=== PATIENT | male | born 1965 | race Caucasian/White ===

== ENCOUNTER 2019-02-04 20:39 | Inpatient (IN) | payer OTHER ==
[~2019-02-04] VITALS: Ht 180.3 cm; Wt 88.0 kg
[2019-02-04 20:40] VITALS: BP 143/90
--- NOTE | 2019-02-04 20:40 | NUR ---
TO BED # 03 AMBULATORY
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
[2019-02-04] MEDS ORDERED: VANCOMYCIN PER PHARMACY MC PRN ×2 (21:15→22:30)
[2019-02-04] MEDS ORDERED: KETOROLAC 15 MG/ML VIAL IVP ONE (21:15)
[2019-02-04] MEDS ORDERED: NACL 0.9% 1,000 ML IV ONE (21:15)
[2019-02-04] MEDS ORDERED: VANCOMYCIN 1GM/DEXT 5% PREMIX 200 ML IV ONE (21:15)
--- NOTE | 2019-02-04 21:17 | NUR ---
PA AT PT BEDSIDE
--- NOTE | 2019-02-04 21:30 | NUR ---
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
--- NOTE | 2019-02-04 21:32 | NUR ---
LAB AT BEDSIDE
[2019-02-04] MEDS ORDERED: cefTRIAXone 1,000 MG VIAL ONE (21:38)
[2019-02-04] MEDS ORDERED: MORPHINE SULFATE 4 MG/ML SYR IVP ONE (22:00)
[2019-02-04 22:12] LABS: HEMATOCRIT 50.9 % (36-52); HEMOGLOBIN 17.4 g/dL (12.0-18.0); MEAN CORPUSCULAR HEMOGLOBIN 31 pg (27-31); MEAN CORPUSCULAR HGB CONC 34 g/dL (33-37); MEAN CORPUSCULAR VOLUME 89.8 fL (80-94); RED BLOOD CELL COUNT(AUTO) 5.67 MIL/uL (4.20-6.10); WHITE BLOOD COUNT (AUTO) 10.7 K/uL (4.8-10.8)
[2019-02-04 22:13] LABS: BASOPHILS # (AUTO) 0.1 K/uL (0.00-0.22); BASOPHILS % (AUTO) 1.4 % (0.0-2.0); EOSINOPHILS # (AUTO) 0.4 K/uL (0-0.4); EOSINOPHILS % (AUTO) 3.4 % (0.0-4.0); LYMPHOCYTES # (AUTO) 2.3 K/uL (2.0-11.5); LYMPHOCYTES % (AUTO) 21.3 % (20.5-51.1); MONOCYTES # (AUTO) 0.9 K/uL (0.8-1.0); MONOCYTES % (AUTO) 8.3 % (1.7-9.3); NEUTROPHILS % (AUTO) 65.6 % (42.2-75.2); PLATELET COUNT (AUTO) 250 K/uL (140-450); RED CELL DISTRIBUTION WIDTH 13.6 % (11.6-13.7)
[2019-02-04 22:14] LABS: ANION GAP 19.2 (8-16); CARBON DIOXIDE 22.2 mmol/L (21-32); POTASSIUM 4.4 mmol/L (3.5-5.1)
[2019-02-04 22:15] LABS: TOTAL BILIRUBIN 0.4 mg/dL (0.0-1.0)
[2019-02-04] MEDS ORDERED: VANCOMYCIN 1,000 MG VIAL ONE (22:30)
[2019-02-04] MEDS ORDERED: ZOLPIDEM 5 MG TAB PO PRN (22:30)
[2019-02-04] MEDS ORDERED: ONDANSETRON 4 MG/2 ML VIAL IVP PRN (22:30)
[2019-02-04] MEDS ORDERED: ACETAMINOPHEN 325 MG TAB PO PRN (22:30)
[2019-02-04] MEDS ORDERED: LORazepam 2 MG/ML VIAL IVP PRN (22:30)
[2019-02-04] MEDS ORDERED: NACL 0.9% 1,000 ML IV SCH (22:30)
[2019-02-04] MEDS ORDERED: KETOROLAC 30 MG/ML VIAL IVP PRN (22:30)
--- NOTE | 2019-02-04 22:30 | NUR ---
PT RESTING, SEEN WITH EYES CLOSED. VISIBLE CHEST RISE AND FALL NOTED. WILL CONTIUE TO MONITOR.
--- NOTE | 2019-02-04 23:07 | NUR ---
Patient will be admitted to care of Dr. Doherty. Admited to Med Surg. Will go to room 119B. Belongings list completed. VSS at time of transport. Report to REJI Wells. transfer of care at this time.
--- NOTE | 2019-02-04 23:10 | NUR ---
ADMITTED A 53 YEAR OLD MALE FROM ER. PATIENT ALERT AND ORIENTED X4. CONGOLESE SPEAKING. NO APPARENT DISTRESS NOTED. ORIENTED TO HOSPITAL ROUTINE, ENVIRONMENT AND EQUIPMENT. VERBALIZED UNDERSTANDING. WILL CONTINUE TO MONITOR.
[2019-02-05] VITALS: BP 134/93
[2019-02-05] MEDS ORDERED: AMPICILLIN/SULBACTAM 3 GM VIAL ONE ×2 (00:28→05:49)
[2019-02-05] MEDS: AMPICILLIN/SULBACTAM 3 GM in NACL 0.9% 100 ML IV SCH ×3 (00:40→12:01)
--- NOTE | 2019-02-05 01:10 | NUR ---
PATIENT ASLEEP IN BED. NO APPARENT DISTRESS NOTED. WILL CONTINUE TO MONITOR.
[2019-02-05 02:11] LABS: APPEARANCE,URINE CLEAR (CLEAR); BILIRUBIN,URINE NEGATIVE (NEGATIVE); BLOOD, URINE NEGATIVE (NEGATIVE); COLOR,URINE YELLOW (YELLOW); LEUKOCYTE ESTERASE ,URINE NEGATIVE (NEGATIVE); NITRITE, URINE NEGATIVE (NEGATIVE); UGLUCOSE NEGATIVE (NEGATIVE)
--- NOTE | 2019-02-05 03:26 | NUR ---
PATIENT ASLEEP IN BED. NO APPARENT DISTRESS NOTED. WILL CONTINUE TO MONITOR.
--- NOTE | 2019-02-05 05:25 | NUR ---
PATIENT ASLEEP IN BED. NO APPARENT DISTRESS NOTED. WILL CONTINUE TO MONITOR.
--- NOTE | 2019-02-05 06:50 | NUR ---
PATIENT HAS BEEN SCREENED AND CATEGORIZED LOW NUTRITION RISK. PATIENT WILL BE SEEN WITHIN 7 DAYS OF ADMISSION. 02/12/19 DEDRICK GARCIA MS, RDN
--- NOTE | 2019-02-05 07:00 | NUR ---
RECEIVED PATIENT FROM BELL ATTENDANT RN. PT. IS LAYING IN BED. AAOX4. NO SIGNS OF DISTRESS NOTED. RESPIRATIONS EVEN AND UNLABORED, ON ROOM AIR. DENIES PAIN. IV SITE PATENT, DRY AND INTACT. BED IN LOW POSITION. CALL LIGHT IS WITHIN REACH. WILL CONTINUE TO MONITOR.
--- NOTE | 2019-02-05 07:10 | NUR ---
ENDORSED TO AM SHIFT NURSE IN STABLE CONDITION.
[2019-02-05 07:15] LABS: BASOPHILS # (AUTO) 0.1 K/uL (0.00-0.22); BASOPHILS % (AUTO) 0.7 % (0.0-2.0); EOSINOPHILS # (AUTO) 0.4 K/uL (0-0.4); EOSINOPHILS % (AUTO) 3.8 % (0.0-4.0); HEMATOCRIT 47.3 % (36-52); HEMOGLOBIN 16.2 g/dL (12.0-18.0); LYMPHOCYTES % (AUTO) 19.4 % (20.5-51.1); MEAN CORPUSCULAR HEMOGLOBIN 31 pg (27-31); MEAN CORPUSCULAR HGB CONC 34 g/dL (33-37); MEAN CORPUSCULAR VOLUME 90.4 fL (80-94); MONOCYTES % (AUTO) 10.3 % (1.7-9.3); NEUTROPHILS # (AUTO) 6.7 K/uL (1.8-7.7); NEUTROPHILS % (AUTO) 65.8 % (42.2-75.2); PLATELET COUNT (AUTO) 208 K/uL (140-450); RED BLOOD CELL COUNT(AUTO) 5.24 MIL/uL (4.20-6.10); RED CELL DISTRIBUTION WIDTH 13.5 % (11.6-13.7); WHITE BLOOD COUNT (AUTO) 10.2 K/uL (4.8-10.8)
[2019-02-05 07:26] LABS: ALBUMIN 3.5 g/dL (3.4-5.0); ANION GAP 14.1 (8-16); CREATININE 0.9 mg/dL (0.7-1.3); POTASSIUM 4.1 mmol/L (3.5-5.1); TOTAL BILIRUBIN 0.5 mg/dL (0.0-1.0)
--- NOTE | 2019-02-05 07:54 | NUR ---
GIVEN IVP TORADOL FOR HAND PAIN. EDUCATED PATIENT ON INDICATION AND SIDE EFFECTS. PATIENT VERBALIZED UNDERSTANDING. WILL REASSESS. CALL LIGHT IS WITHIN REACH. BED IN LOW POSITION.
[2019-02-05 08:00] VITALS: BP 126/88
--- NOTE | 2019-02-05 09:50 | NUR ---
PATIENT IS SLEEPING AT THIS TIME. NO COMPLAINTS OF PAIN. NO SIGNS OF DISTRESS NOTED. WILL CONTINUE TO MONITOR. CALL LIGHT IS WITHIN REACH. BED IN LOW POSITION
[2019-02-05] MEDS ORDERED: VANCOMYCIN 1,250 MG in DEXTROSE 5% 250 ML IV SCH (10:00)
--- NOTE | 2019-02-05 11:40 | NUR ---
Pantry Goods Maker Note: Basic Screen: Yes High Risk DC Screen [place]: MALAIKA Mathur Relationship: ROOMMATE Pre-Admission Living Arrangements: Lives with Other Other: ROOMMATE Prior ADL Independent Current Home Health Name/Tel: N/A Current DME/02 Name/Tel: N/A Current Hospice Name/Tel: N/A Current Dialysis Name/Tel: N/A Healthcare Decision Maker: Patient Advance Directive No - REFUSED Physician Orders for Life Sustaining Treatment Form No Patient/Family Have Educational Needs No Information Taught: Advance Directive Community Resources Person Taught: Patient Teaching Tools: Community Resources Verbal Factors Affecting Learning: None Participation Level: Refused Evaluation: Verbalizes Understanding Discipline: Case Mgt/Social Svcs Tentative Discharge Plan/Destination: No Needs Identified Will require assistance post discharge: No Referred to Pattern Cleaner: No Tentative Discharge Plan Summary: Patient is a 53-year-old male admitted for hand cellulitis. Patient has PMHX of Hep C. Patient was admitted from home. SW verified demographics with patient. Patient reports no mental health history. Patient reports drinking 2 beers 2-3x a week and methamphetamine use 3x a week (1 dime). Patient stated he is not able to recall how much marijuana he uses. Patient refused substance abuse resources and stated his drug use "is not a problem". Patient also reports smoking 1 pack of cigarettes daily. SW offered advanced directive education but patient refused. Patient's tentative plan after discharge is to return home. No further needs identified. Signature: ABIGAIL Alfonso Date: Feb 05, 2019 Time: 11:40
--- NOTE | 2019-02-05 12:02 | NUR ---
GIVEN UNASYN VIA IVPB. EXPLAINED TO PT. INDICATION AND SIDE EFFECTS. VERBALIZED UNDERSTANDING. WILL CONTINUE TO MONITOR.
--- NOTE | 2019-02-05 13:45 | NUR ---
PATIENT LEFT AMA. SIGNED PAPERWORK. IV LINES REMOVED. PATIENT WALKED SELF OUT.
--- NOTE | 2019-02-05 13:45 | NUR ---
PATIENT EDUCATED ON THE RISKS ON LEAVING AMA. PATIENT VERBALIZED UNDERSTANDING AND WISHES TO TAKE THE RISKS. PHYSICIAN NOTIFIED. SIGNED AMA PAPERWORK. IV REMOVED WITH MINIMUM BLOOD LOSS AND LUMEN INTACT. BELONGINGS VERIFIED AND RETURNED TO PATIENT. ID BANDS REMOVED. PATIENT ESCORTED OFF UNIT ON FOOT.
== END 2019-02-05 13:50 | disposition left against medical advice (07) | DRG 383 ==
LOC: MED 20:39 → MTU 22:34
PROVIDERS: ADMIT Internal Medicine Pulmonary Disease; ATTEND Internal Medicine Pulmonary Disease
DX: L03.113 Cellulitis of right upper limb (principal); Z53.29 Procedure and treatment not carried out because of patient's decision for other reasons; Z91.041 Radiographic dye allergy status
CPT/HCPCS: 36415; 73130; 80053; 81003; 83605; 85025; 87040; 87081; 96365; 96367; 96375; 99285; J0295; J0696; J1885; J2270; J3370; J7030; J7060; Q0092